=== PATIENT | male | born 1965 | race Caucasian/White ===

== ENCOUNTER 2016-10-01 01:45 | Emergency (ER) | payer MEDICAID ==
[2016-10-01] MEDS ORDERED: Sodium Chloride 0.9% 1,000 ML IV ONE (01:54)
--- NOTE | 2016-10-01 02:00 | ED Physician Chart ---
Chief Complaint/HPI - Patient Information Date Seen:: 10/01/16 Time Seen:: 01:55 Chief Complaint:: etoh related History of Present Illness:: pt well known in this ed for etoh related episodes. was drinking etoh yest evening. had dramatic argument at his house and ems called.. pt says he is etohic and cant stop drinking...is crying about this. he has hx of hep c untxd and cirrhosis. no recent fever. Allergies:: Allergies Allergy/AdvReac Type Severity Reaction Status Date / Time No Known Allergies Allergy Verified 12/09/15 01:43 Historian:: Patient Review of Systems - Review of Systems General/Constitutional: No fever, No chills, No weight loss, No weakness, No diaphoresis, No edema, No loss of appetite Skin: No skin lesions, No rash, No bruising Head: No headache, No light-headedness Eyes: No loss of vision, No pain, No diplopia ENT: No earache, No nasal drainage, No sore throat, No tinnitus Neck: No neck pain, No swelling, No thyromegaly, No stiffness, No mass noted Cardio Vascular: No chest pain, No palpitations, No PND, No orthopnea, No edema Pulmonary: No SOB, No cough, No sputum, No wheezing GI: Nausea, No vomiting, No diarrhea, No pain, No melena, No hematochezia, No constipation, No hematemesis, Other (abd fullness) G/U: No dysuria, No frequency, No hematuria Musculoskeletal: No bone or joint pain, No back pain, No muscle pain Endocrine: No polyuria, No polydipsia Psychiatric: Prior psych history, No depression, No anxiety, No suicidal ideation Hematopoietic: No bruising, No lymphadenopathy Allergic/Immuno: No urticaria, No angioedema Neurological: No syncope, No focal symptoms, No weakness, No paresthesia, No headache, No seizure, No dizziness, No confusion, No vertigo Past Medical History - Past Medical History Past Medical History: Other (hep c, etohic/cirrhosis) Social History: Other (lives w family, has 2 teenage dtrs) Medication: Reviewed Family Medical History - Family Member Mother History Unknown: Yes Ethnicity: Unknown Living Status: Still Living Hx Family Hypertension: Yes Father History Unknown: Yes Ethnicity: Non- Living Status: Still Living Hx Family Coronary Artery Disease: Yes Hx Family Hypertension: Yes Physical Exam - Physical Examination General/Constitutional: Awake, Well-developed, well-nourished, Alert, No distress, GCS 15, Non-toxic appearing, Ambulatory Other Gen/Cons comments:: awake/alert/talkative. bawling and upset and anxious. no dyspnea. Head: Atraumatic Eyes: Lids, conjuctiva normal, PERRL, EOMI Skin: Nl inspection, No rash, No skin lesions, No ecchymosis, Well hydrated, No lymphadenopathy ENMT: External ears, nose nl, Nasal exam nl, Lips, teeth, gums nl Neck: Nontender, Full ROM w/o pain, No JVD, No nuchal rigidity, No bruit, No mass, No stridor Respiratory: Nl effort/Exclusion, Clear to Auscultation, No Wheeze/Rhonchi/Rales Cardio Vascular: RRR, No murmur, gallop, rubs, NL S1 S2 GI: No organomegaly, No hernia, Normal BS's, No mass/bruits, No McBurney tenderness Other GI comments:: abd is full and cw cirrhosis/ascites but no focal tndrness. nrml bs. no rebound. : No CVA tenderness Extremities: No tenderness or effusion, Full ROM, normal strength in all extremities, No edema, Normal digits & nails Neuro/Psych: Alert/oriented, DTR's symmetric, Normal sensory exam, Normal motor strength, Mood normal, Normal gait, No focal deficits Other Neuro/Psych comments:: upset/anxious Misc: normal gait, Normal back, No paraspinal tenderness Labs/Radiology/EKG Results - Lab Results Results: Laboratory Tests 10/01/16 10/01/16 10/01/16 02:05 02:05 02:05 WBC 6.3 D RBC 4.46 Hgb 8.9 L Hct 29.2 L MCV 65.5 L MCH 19.8 L MCHC Differential 30.3 RDW 22.4 H Plt Count 147 L MPV 9.9 Band Neutrophils % 2 Neutrophils (Manual) 64 Lymphocytes 20 Monocytes 12 H Eosinophils 2 Hypochromia 1+ Platelet Estimate ADEQUATE Polychromasia 1+ Anisocytosis 1+ Microcytosis 2+ PT 12.8 H INR 1.22 PTT (Actin FS) 30.1 Sodium 130 L Potassium 3.7 Chloride 102 Carbon Dioxide 25.5 Anion Gap 6.2 L BUN 7 Creatinine 0.6 L Est GFR ( Amer) > 60.0 Est GFR (Non-Af Amer) > 60.0 BUN/Creatinine Ratio 11.7 Glucose 379 H Calcium 8.2 L Total Bilirubin 1.3 H AST 43 H ALT 28 Alkaline Phosphatase 214 H Total Protein 8.2 Albumin 2.8 L Globulin 5.4 Albumin/Globulin Ratio 0.5 L Urine Source Urine Color Urine Clarity Urine pH Ur Specific [place] Urine Protein Urine Glucose (UA) Urine Ketones Urine Blood Urine Nitrate Urine Bilirubin Urine Urobilinogen Ur Leukocyte Esterase Urine RBC Urine WBC Ur Epithelial Cells Urine Bacteria Urine Opiates Screen Urine Methadone Screen Ur Barbiturates Screen Ur Tricyclics Screen Ur Phencyclidine Scrn Amphetamines Screen U Methamphetamines Scrn U Benzodiazepines Scrn U Cocaine Metab Screen U Cannabinoids Screen Ethyl Alcohol 334 H 10/01/16 10/01/16 02:15 02:15 WBC RBC Hgb Hct MCV MCH MCHC Differential RDW Plt Count MPV Band Neutrophils % Neutrophils (Manual) Lymphocytes Monocytes Eosinophils Hypochromia Platelet Estimate Polychromasia Anisocytosis Microcytosis PT INR PTT (Actin FS) Sodium Potassium Chloride Carbon Dioxide Anion Gap BUN Creatinine Est GFR ( Amer) Est GFR (Non-Af Amer) BUN/Creatinine Ratio Glucose Calcium Total Bilirubin AST ALT Alkaline Phosphatase Total Protein Albumin Globulin Albumin/Globulin Ratio Urine Source CLEAN C Urine Color YELLOW Urine Clarity CLEAR Urine pH 6.5 Ur Specific [place] 1.87320 L Urine Protein NEGATIVE Urine Glucose (UA) 500 H Urine Ketones NEGATIVE Urine Blood TRACE Urine Nitrate NEGATIVE Urine Bilirubin NEGATIVE Urine Urobilinogen 0.2 Ur Leukocyte Esterase NEGATIVE Urine RBC 0-2 H Urine WBC 0-2 Ur Epithelial Cells NONE SEEN Urine Bacteria OCCASIONAL Urine Opiates Screen POSITIVE H Urine Methadone Screen NEGATIVE Ur Barbiturates Screen NEGATIVE Ur Tricyclics Screen NEGATIVE Ur Phencyclidine Scrn NEGATIVE Amphetamines Screen NEGATIVE U Methamphetamines Scrn NEGATIVE U Benzodiazepines Scrn NEGATIVE U Cocaine Metab Screen NEGATIVE U Cannabinoids Screen POSITIVE H Ethyl Alcohol ED Septic Shock - . Is Septic Shock (SBP<90, OR Lactate>4 mmol\L) present?: No Reassessment (Disposition) - Reassessment Reassessment:: as of I returned to ed from a 1 hr to break to find pt has left the ed..apparently his family(mom) showed up and took him home as has been the case in the past. pt was awake and talking calmly and ambulating well and wante d to leave and family was happy to take him home. I heard about this after it has happened. review of labs/results show pt approaching end-stage w cirrhosis as he is aware and we talked about this earlier. he says is unable to stop drinking...he knows where resoureces are to help w this end. 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
[2016-10-01 02:18] LABS: HEMATOCRIT 29.2 % (39.0-49.0); HEMOGLOBIN 8.9 gm/dL (13.2-17.3); MEAN CORPUSCULAR HEMOGLOBIN 19.8 pg (26.0-30.0); MEAN CORPUSCULAR HGB CONC 30.3 pg (28.0-36.0); MEAN PLATELET VOLUME 9.9 fl; PLATELET COUNT 147 Th/cmm (150-400); RED BLOOD COUNT 4.46 Mil/cmm (4.30-5.70); RED CELL DISTRIBUTION WIDTH 22.4 % (11.5-20.0); WHITE BLOOD COUNT 6.3 Th/cmm (4.8-10.8)
[2016-10-01 02:28] LABS: ALB/GLOB RATIO 0.5 (1.0-1.8); ALKALINE PHOSPHATASE 214 U/L (34-104); ANION GAP 6.2 (7.0-16.0); BILIRUBIN,TOTAL 1.3 mg/dL (0.3-1.0); BUN - UREA NITROGEN 7 mg/dL (7-25); BUN/CREATININE RATIO 11.7; CALCIUM SERUM 8.2 mg/dL (8.6-10.3); CARBON DIOXIDE 25.5 mEq/L (21.0-31.0); CHLORIDE 102 mEq/L (98-107); CREATININE - SERUM 0.6 mg/dL (0.7-1.3); GLUCOSE 379 mg/dL (70-105); POTASSIUM SERUM 3.7 mEq/L (3.5-5.1); SGOT 43 U/L (13-39); SGPT/ALT 28 U/L (7-52); SODIUM SERUM 130 mEq/L (136-145)
[2016-10-01 02:35] LABS: ANISOCYTOSIS 1+; BAND NEUTROPHILE 2 % (0-10); EOSINOPHIL 2 % (0-5); HYPOCHROMIA 1+; MICROCYTOSIS 2+; NEUTROPHILS 64 % (40-80); PLATELET ESTIMATE ADEQUATE (NORMAL); POLYCHROMASIA 1+; TOTAL CELLS COUNTED 100
[2016-10-01 02:38] LABS: INR 1.22 (0.5-1.4); PROTHROMBIN TIME (TEST) 12.8 SECONDS (9.5-11.5)
[2016-10-01 02:39] LABS: URINE BILIRUBIN NEGATIVE (NEGATIVE); URINE BLOOD TRACE (NEGATIVE); URINE COLOR YELLOW; URINE EPITHELIAL CELLS NONE SEEN /lpf (FEW); URINE GLUCOSE (UA) 500 mg/dL (NEGATIVE); URINE KETONE NEGATIVE (NEGATIVE); URINE PH 6.5; URINE PROTEIN NEGATIVE (NEGATIVE); URINE RBC 0-2 /hpf (0-5); URINE UROBILINOGEN 0.2 E.U./dL (0.2 - 1.0); URINE WBC 0-2 /hpf (0-5)
[2016-10-01 02:40] LABS: URINE BACTERIA OCCASIONAL /hpf (NONE SEEN)
[2016-10-01 02:42] LABS: AMPHETAMINE URINE NEGATIVE (NEGATIVE); BARBITURATES URINE NEGATIVE (NEGATIVE); METHADONE URINE NEGATIVE (NEGATIVE)
[2016-10-01 02:43] LABS: MEAN CELL VOLUME 65.5 fl (80-99)
== END 2016-10-01 03:15 | disposition home or self-care (01) ==
LOC: ER 01:45
DX: F10.129 Alcohol abuse with intoxication, unspecified (principal); K70.30 Alcoholic cirrhosis of liver without ascites; Z86.19 Personal history of other infectious and parasitic diseases
CPT/HCPCS: 99284; 96374; 96375; 80307; 36415; 85007; 85027; 85610; 81001; 80320; 83036; 80053; J2060; J2405; J7030; Z7502